=== PATIENT | female | born 1940 | race Caucasian/White ===

== ENCOUNTER 2022-01-22 08:48 | Outpatient (CLI) | payer MEDICARE, OTHER ==
[2022-01-22 09:59] LABS: Estimated GFR-MDRD - POC Greater than 90
== END 2022-01-22 08:49 | disposition home or self-care (01) ==
LOC: CSHCT 08:48
PROVIDERS: ATTEND Registered Nurse
DX: R79.89 Other specified abnormal findings of blood chemistry (principal)
CPT/HCPCS: 71275; 82565